=== PATIENT | male | born 1975 | race Caucasian/White ===

== ENCOUNTER → 2025-06-06 08:00 | Outpatient (BNVA) | payer BC, SELFPAY | PROVIDERS: PCP Family Medicine; Visit Provider Family Medicine | DX: E55.9 Vitamin D deficiency, unspecified (principal); I10 Essential (primary) hypertension; G47.00 Insomnia, unspecified; R74.8 Abnormal levels of other serum enzymes; E78.2 Mixed hyperlipidemia; Z12.5 Encounter for screening for malignant neoplasm of prostate; R79.89 Other specified abnormal findings of blood chemistry | CPT/HCPCS: 80053; 80061; 82306; 82607; 84443; 85025; 85651; 86140; G0103 ==

== ENCOUNTER 2025-07-04 10:12 | Outpatient (CLI) | payer BC, SELFPAY ==
[2025-07-04 11:08] LABS: Hematocrit 48.0 % (37-53); Hemoglobin 17.00 g/dL (11.27-16.99); Mean Corpuscular HGB Conc 35.4 g/dL (30-55); Mean Corpuscular Hemoglobin 30.7 pg (27-33); Mean Corpuscular Volume 86.6 fl (82-101); Nucleated Red Blood Cells % 0 %; Platelet Count 200 10^3/cmm (157-399); Red Blood Count 5.54 10^6/uL (3.85-5.65); White Blood Count 5.56 10^3/uL (3.29-11.43)
== END 2025-07-04 10:13 | disposition home or self-care (01) ==
PROVIDERS: PCP Family Medicine; Visit Provider Family Medicine
DX: D75.1 Secondary polycythemia (principal)
CPT/HCPCS: 80503; 81256; 82728; 83540; 85025; 86038; 86200; 86431

== ENCOUNTER 2025-08-03 08:46 | Oncology outpatient (recurring) (ONCR) | payer BC, SELFPAY ==
[2025-07-23 10:57] VITALS: BP 129/86
[2025-08-03 09:15] LABS: Hematocrit 48.3 % (37-53); Hemoglobin 16.70 g/dL (11.27-16.99); Mean Corpuscular HGB Conc 34.6 g/dL (30-55); Mean Corpuscular Hemoglobin 30.0 pg (27-33); Mean Corpuscular Volume 86.7 fl (82-101); Nucleated Red Blood Cells % 0 %; Platelet Count 217 10^3/cmm (157-399); Red Blood Count 5.57 10^6/uL (3.85-5.65); White Blood Count 4.57 10^3/uL (3.29-11.43)
[2025-08-03 09:33] LABS: Alanine Aminotransferase 34 U/L (0-41); Albumin Level 4.0 g/dL (3.5-5.2); Alkaline Phosphatase 86 U/L (40-130); Anion Gap 16.8 (5-19); Aspartate Amino Transferase 24 U/L (0-40); Blood Urea Nitrogen 12 mg/dL (6-20); Calcium 9.1 mg/dL (8.5-10.5); Carbon Dioxide 23 mmol/L (22-29); Chloride 101 mmol/L (98-107); Globulin 3.1 g/dL (1.3-4.6); Glucose 175 mg/dL (65-115); Osmolality Calculated 288 mOsm/kg (285-295); Potassium 3.8 mmol/L (3.5-5.1); Sodium 137 mmol/L (136-145); Total Protein 7.1 g/dL (6.6-8.7)
[2025-08-09 15:05] LABS: CALR Exon 9 Mutation NOT DETECTED (NOT DETECTED); JAK2 Exon 12 Mutation NOT DETECTED (NOT DETECTED); JAK2 V617 Clinical Indication polycythemia vera; MPL Exon 10 Mutation NOT DETECTED (NOT DETECTED); Specimen Source blood
== END 2025-08-19 23:59 | disposition home or self-care (01) ==
PROVIDERS: PCP Family Medicine; Visit Provider Internal Medicine Medical Oncology
DX: E83.110 Hereditary hemochromatosis; D75.1 Secondary polycythemia; Z53.9 Procedure and treatment not carried out, unspecified reason
CPT/HCPCS: 36415; 80053; 81219; 81270; 81279; 81339; 85025; 99195

== ENCOUNTER 2025-08-06 07:28 | Outpatient (CLI) | payer BC, SELFPAY ==
--- NOTE | 2025-08-06 07:15 | US_ITS ---
WS: [id number] Complete ABDOMINAL ULTRASOUND HISTORY: hereditary hemochtomatosis COMPARISON: None available. Liver: 18.2 cm in length. Liver is slightly enlarged. Mild increased echogenicity within the liver. The deep liver is not visualized well due to attenuation. Surface of the liver is very slightly nodular and irregular. No mass identified at the entire liver is not well visualized. Area of decreased attenuation in the gallbladder is probably an area of focal fatty sparing. This is a typical location for fatty sparing. Portal Vein: Normal hepatopetal flow with monophasic waveform. Gallbladder: Normally distended gallbladder with no stones or wall thickening. CBD: 0.4 cm Pancreas: Not visualized. Right kidney: 10.9 cm x 5.4 x 5.9 cm. Cortex:1.0 cm. Normal size and echogenicity. No hydronephrosis or mass. Left kidney: 11.8 cm x 5.9 cm x 5.6 cm. Cortex: 1.1 cm. Normal size and echogenicity. No hydronephrosis or mass. Spleen: 14.3 cm. Spleen is measuring slightly enlarged. Normal concave hilum. No mass. Aorta and IVC: Limited. US/US abdomen complete* [id number] Impression: 1. Mildly enlarged liver with increased attenuation and focal fatty sparing at the gallbladder. These changes are likely due to hepatic steatosis with areas of sparing. Chronic hepatocellular disease may appear similar. The entire liver is not imaged well due to attenuation and body habitus. 2. Negative gallbladder. 3. Mild splenomegaly. 4. No renal obstruction.
== END 2025-08-06 07:29 | disposition home or self-care (01) ==
LOC: RAD 07:30
PROVIDERS: PCP Family Medicine; Visit Provider Internal Medicine Medical Oncology
DX: E83.119 Hemochromatosis, unspecified (principal); E83.110 Hereditary hemochromatosis; D45 Polycythemia vera; R16.0 Hepatomegaly, not elsewhere classified; K76.89 Other specified diseases of liver
CPT/HCPCS: 76700